=== PATIENT | female | born 1945 | race Caucasian/White ===

== ENCOUNTER 2024-06-24 13:32 | Emergency (ER) | payer MEDICARE, BC ==
[~2024-06-24] VITALS: Ht 162.6 cm; Wt 65.8 kg
[~2024-06-24 13:32] MED LIST: MECLIZINE HCL12.5 MG PO
[2024-06-24] MEDS ORDERED: ULTRAM 50MG50 MG PO (15:09)
[2024-06-24 16:04] VITALS: PULSE 65; RESP 16; TEMP 98.1; O2SAT 99
== END 2024-06-24 16:04 | disposition home or self-care (01) ==
LOC: ER 13:34
DX: S92.514A Nondisplaced fracture of proximal phalanx of right lesser toe(s), initial encounter for closed fracture (principal); W22.09XA Striking against other stationary object, initial encounter; Y92.89 Other specified places as the place of occurrence of the external cause; M81.0 Age-related osteoporosis without current pathological fracture; F41.9 Anxiety disorder, unspecified
CPT/HCPCS: 99283